=== PATIENT | male | born 1950 | race Hispanic/Latino ===

== ENCOUNTER → 2017-06-03 | Day surgery (SDC) | payer MEDICARE, OTHER ==
[2017-06-02 13:35] LABS: BASOPHILS # (AUTO) 0.1 (0.0-0.1); BASOPHILS % 0.6 % (0.0-1.0); EOSINOPHILS # (AUTO) 0.4 (0.0-0.4); EOSINOPHILS % 5.5 % (0.0-6.0); HEMATOCRIT 42.1 % (38.2-49.6); HEMOGLOBIN 14.9 g/dL (14.0-18.0); LYMPHOCYTES # (AUTO) 2.6 (1.0-3.2); LYMPHOCYTES % 32.2 % (18.0-39.1); MEAN CORPUSCULAR HEMOGLOBIN 32.2 pg (28-32); MEAN CORPUSCULAR HGB CONC 35.4 g/dL (31-35); MEAN CORPUSCULAR VOLUME 90.9 fL (81-99); MONOCYTES # (AUTO) 0.6 (0.2-0.8); MONOCYTES % 7.7 % (4.4-11.3); NEUTROPHILS # (AUTO) 4.3 (2.1-6.9); NEUTROPHILS % 53.8 % (38.7-80.0); PLATELET COUNT 247 x10e3/uL (140-360); RED BLOOD COUNT 4.63 x10e6/uL (4.3-5.7); RED CELL DISTRIBUTION WIDTH 13.4 % (11.7-14.4)
[2017-06-02 13:55] LABS: INR 1.14; PROTHROMBIN TIME 13.7 seconds (11.9-14.5)
[2017-06-02 14:03] LABS: ALANINE AMINOTRANSFERASE 15 IU/L (0-55); ALBUMIN 3.5 g/dL (3.5-5.0); ALKALINE PHOSPHATASE 78 IU/L (40-150); ANION GAP 10.9 mmol/L (8-16); BLOOD UREA NITROGEN 11 mg/dL (7-26); BUN/CREATININE RATIO 15 (6-25); CALCIUM 9.1 mg/dL (8.4-10.2); CARBON DIOXIDE 25 mmol/L (22-29); CHLORIDE 107 mmol/L (98-107); CHOL/HDL RATIO 4.5 (3.9-4.7); CHOLESTEROL 179 MD/DL (0-199); CREATININE, SERUM 0.73 mg/dL (0.72-1.25); EST GLOMERULAR FILTRATION RATE > 60 ML/MIN (60-); GLUCOSE 92 mg/dL (74-118); HDL CHOLESTEROL 40 MG/DL (40-60); LDL CHOLESTEROL 93 MG/DL (60-130); POTASSIUM 3.9 mmol/L (3.5-5.1); SODIUM 139 mmol/L (136-145); TRIGLYCERIDES 230 MG/DL (0-149)
[~2017-06-03] VITALS: Ht 172.7 cm; Wt 72.6 kg
[~2017-06-03] MED LIST: ASPIRIN 325 MG TAB ONE; FENTANYL CITRATE/PF 100MCG/2 ML INJ ONE; HEPARIN SOD (PORCINE) 1000 UNIT/ML 30ML ONE; HEPARIN SOD/SOD CHLORIDE 2,000 ML ONE; IOPAMIDOL 370 MG/ML 200 ML INFUS..BTL INJ ONE; LIDOCAINE HCL 2% LOCAL 20 ML VIAL ONE; MIDAZOLAM HCL 2 MG/2 ML VIAL ONE; SODIUM CHLORIDE 0.9% 1000ML 1,000 ML ONE; VERAPAMIL HCL 2.5 MG/ML 2 ML VIAL ONE
[2017-06-03 06:49] VITALS: BP 180/100
[2017-06-03 11:09] VITALS: BP 171/100
--- NOTE | 2017-06-03 15:18 | Operative Report ---
DATE OF PROCEDURE: June 03, 2017 PROCEDURE INDICATIONS: Exertional dyspnea and chest pain concerning for unstable angina, abnormal stress test. PROCEDURES PERFORMED 1. Left heart catheterization. 2. Selective coronary angiography x2. 3. Right radial TR band hemostasis. PROCEDURE COMPLICATIONS: None. ESTIMATED BLOOD LOSS: Less than 5 mL. PROCEDURE SUMMARY: After consent was obtained, the patient was prepped and draped in a sterile fashion. The right radial site was locally infiltrated with 2% lidocaine. Ultrasound guidance was used for access. A 5-[employer] [place] long sheath was advanced over a wire. Nitroglycerin 200 mcg and heparin 5,000 units were administered via the sheath. Of note, no verapamil was given as the patient's resting heart rate was in the 40s. A TIG catheter was advanced over a J-wire to the proximal ascending aorta and used to cross the aortic valve for hemodynamic measurements as well as to selectively engage the left main and then the right coronary artery for selective coronary angiography in multiple views. The following findings were noted: 1. The LV pressure was 1.5/8 with end-diastolic pressure of 17. 2. The aortic pressure was 1.3/63. 3. The left main was large in caliber with luminal irregularity. It gives LAD and circumflex. 4. The LAD has luminal irregularity. It gives a couple of diagonals and multiple septal perforators. 5. The circumflex has luminal irregularities. It gives a left atrial branch and 3 obtuse marginals. 6. The right coronary artery has luminal irregularity. It gives an RV marginal and a terminal RPDA and RPLV. CONCLUSIONS 1. Mild coronary artery disease with luminal irregularities representing less than 30% stenosis throughout the coronary arteries. 2. Mildly uncontrolled hypertension. 3. Marked sinus bradycardia without any use of chronotropic-negative medication. RECOMMENDATIONS 1. Evaluation by cardio-electrophysiology for symptomatic bradycardia and chronotropic incompetence. Likely will need a pacemaker. 2. Patient advised to avoid driving or operating heavy machinery. 3. Wean TR band over the next hour. 4. IV fluids. 5. Tentatively discharge within the next 3 to 4 hours if he continues to do well. Job#: [id number]
== END | disposition home or self-care (01) ==
LOC: CATH LAB 06:46
PROVIDERS: ATTEND Internal Medicine Cardiovascular Disease
DX: I25.110 Atherosclerotic heart disease of native coronary artery with unstable angina pectoris (principal); I45.89 Other specified conduction disorders; R00.1 Bradycardia, unspecified; R94.39 Abnormal result of other cardiovascular function study; I10 Essential (primary) hypertension; F17.210 Nicotine dependence, cigarettes, uncomplicated; Z01.810 Encounter for preprocedural cardiovascular examination; Z01.812 Encounter for preprocedural laboratory examination
CPT/HCPCS: 36415; 80053; 80061; 85025; 85610; 93005; 93458; C1887; J1644; J2001; J2250; J7030; Q9967; 36140